=== PATIENT | male | born 1945 | race Caucasian/White ===

== ENCOUNTER 2023-12-05 15:52 | Outpatient (CLI) | payer MEDICARE, SELFPAY ==
--- NOTE | 2023-12-05 13:00 | DI.RAD_ITS ---
Exam(s) XR KNEE LT 4V AP,LAT,JOSE,PAT EXAM: XR KNEE LT 4V AP,LAT,JOSE,PAT CLINICAL HISTORY: left knee pain. TECHNIQUE: 2D digital imaging was performed of the left knee. Four images were obtained. Merchant, AP, lateral and PA tunnel views were obtained. COMPARISON: No exams were available for comparison FINDINGS: BONES: No acute fracture is present. No bony destructive lesion is seen. JOINTS: The knee is normally aligned. No joint effusion is seen. No loose body. SOFT TISSUE: Vascular calcifications are present. IMPRESSION: No acute abnormality. DATA REPOSITORY: RADIATION DOSE DELIVERED:
== END 2023-12-05 15:53 | disposition home or self-care (01) ==
LOC: DIORS 15:53
PROVIDERS: Visit Provider Physician Assistant
DX: M23.92 Unspecified internal derangement of left knee
CPT/HCPCS: 20610; 99203; J1010; 73564